=== PATIENT | male | born 2000 | race Caucasian/White ===

== ENCOUNTER 2020-08-29 11:35 | Emergency (ER) | payer OTHER ==
[2020-08-29 11:46] VITALS: BP 129/70; PULSE 103; RESP 18; TEMP 100.6
[2020-08-29] MEDS ORDERED: ACETAMINOPHEN TAB 500 MG TAB PO STA (12:24)
[2020-08-29] MEDS ORDERED: DEXAMETHASONE SOD PHOSPHATE 4 MG/ML 1 ML VIAL IV STA (12:25)
[2020-08-29] MEDS ORDERED: SODIUM CHLORIDE 0.9% 1,000 ML IV STA (12:25)
[2020-08-29] MEDS ORDERED: DEXAMETHASONE SOD PHOSPHATE 10 MG/ML 1 ML VIAL IV STA (12:26)
--- NOTE | 2020-08-29 12:27 | ED ---
ENT HPI - General Chief complaint: ENT Stated complaint: swelling neck Time Seen by Provider: 08/29/20 12:16 Source: patient, RN notes reviewed, old records reviewed Mode of arrival: ambulatory Limitations: no limitations - History of Present Illness Initial comments: Pt is a 20 year old male whom presents to ED for complaints of sore throat fever, chills for 2 days. Pt reports no history of sick contacts. Pt reports no history of strep infections. Pt denies cough. Pt has taken motrin earlier. - Related Data Previous Rx's Medication Instructions Recorded Lidocaine Viscous 2% [Xylocaine 5 ml MUCOUS MEM TID #60 ml 08/29/20 Viscous] predniSONE [Deltasone] 20 mg PO DIRECTED #12 tab 08/29/20 Allergies Allergy/AdvReac Type Severity Reaction Status Date / Time No Known Allergies Allergy Verified 08/29/20 11:46 Review of Systems ROS Statement: Those systems with pertinent positive or pertinent negative responses have been documented in the HPI. ROS Other: All systems not noted in ROS Statement are negative. Past Medical History Past Medical History: No Reported History History of Any Multi-Drug Resistant Organisms: None Reported Past Surgical History: No Surgical Hx Reported Past Psychological History: No Psychological Hx Reported Smoking Status: Current some day smoker Past Alcohol Use History: None Reported Past Drug Use History: None Reported General Exam - General Exam Comments Initial Comments: 20 year old male, no acute distress. Limitations: no limitations General appearance: alert, in no apparent distress Head exam: Present: atraumatic, normocephalic, normal inspection Eye exam: Present: normal appearance, PERRL, EOMI. Absent: scleral icterus, conjunctival injection, periorbital swelling ENT exam: Present: normal exam, mucous membranes moist, other (Pt has bilateral tonsilar exudates and swelling. ) Neck exam: Present: normal inspection, lymphadenopathy. Absent: tenderness, meningismus Respiratory exam: Present: normal lung sounds bilaterally. Absent: respiratory distress, wheezes, rales, rhonchi, stridor Cardiovascular Exam: Present: regular rate, normal rhythm, normal heart sounds. Absent: systolic murmur, diastolic murmur, rubs, gallop, clicks Extremities exam: Present: normal inspection, full ROM, normal capillary refill. Absent: tenderness, pedal edema, joint swelling, calf tenderness Back exam: Present: normal inspection Neurological exam: Present: alert, oriented X3, CN II-XII intact Course Vital Signs 08/29/20 11:41 Temperature 100.6 F H Pulse Rate 103 H Respiratory 18 Rate Blood Pressure 129/70 O2 Sat by Pulse 98 Oximetry Medical Decision Making - Medical Decision Making 20 year old male with sore throat for 2 days. He has evidence of bilateral tonsillar eudate and swelling, and lymphadenopathy. No sign of tonsillar abscess. Pt strep test is negative. Pt has positive heterophile. Pt advised on Dx of mononucleosis, Rx for steroid, magic mouth wash. Pt advised to take tyle nol and motrin. Discussed splenic precutions. Discussed return parameters. - Lab Data Lab Results 08/29/20 08/29/20 Range/Units 11:48 12:25 Heterophile Antibody Positive (Negative) Group A Strep Rapid Negative (Negative) Disposition Clinical Impression: Mononucleosis Disposition: HOME SELF-CARE Condition: Good Instructions (If sedation given, give patient instructions): Mononucleosis (ED) Additional Instructions: Patient advised to avoid any contact sports that she could be at risk for spleen injury and traumatic injury to your left back. The Patient should take Motrin Tylenol for pain. Use the Magic mouthwash. Return to ED if any alarming signs or symptoms occur. Prescriptions: predniSONE [Deltasone] 20 mg PO DIRECTED #12 tab Lidocaine Viscous 2% [Xylocaine Viscous] 5 ml MUCOUS MEM TID #60 ml Is patient prescribed a controlled substance at d/c from ED?: No Referrals: None,Stated [Primary Care Provider] - 1-2 days Time of Disposition: 13:40
== END 2020-08-29 14:12 | disposition home or self-care (01) ==
LOC: EC 11:35
DX: B27.90 Infectious mononucleosis, unspecified without complication (principal); F17.200 Nicotine dependence, unspecified, uncomplicated
CPT/HCPCS: 36415; 86308; 87081; 87430; 99284; 96374; 96361; J1100